=== PATIENT | male | born 1990 | race African-American/Black ===

== ENCOUNTER 2018-09-12 19:47 | Emergency (ER) | payer OTHER ==
[2018-09-12 20:29] LABS: #Eosinphils 0.2 thou/uL (0.0-0.7); #Lymphocytes 2.3 thou/uL (1.20-3.40); #Monocytes 0.4 thou/uL (0.11-0.59); #Neutrophils 3.8 thou/uL (1.40-6.50); %Basophils 0.6 % (0.0-1.0); %Eosinophils 2.7 % (0.0-10.0); %Lymphocytes 34.5 % (21.0-51.0); %Monocytes 5.3 % (0.0-10.0); %Neutrophils 56.9 % (42.0-75.0); Hemoglobin 15.3 g/dL (14.0-18.0); Mean Corpuscular HGB CONC 33.6 g/dL (32.0-36.0); Mean Corpuscular Hemoglobin 27.4 pg (27.0-31.0); Mean Corpuscular Volume 81.6 fL (78.0-98.0); Mean Platelet Volume 8.9 fL (7.4-10.4); Platelet Count 224 thou/uL (130-400); RBC Distribution Width 11.8 % (11.5-14.5); Red Blood Cell (RBC) Count 5.57 mill/uL (4.70-6.10); White Blood Cell (WBC) Count 6.6 thou/uL (4.8-10.8)
--- NOTE | 2018-09-12 20:30 | RAD ---
RADIOGRAPH CHEST 2 VIEWS: 09/12/18 HISTORY: 27-year-old male with chest pain. FINDINGS: There is no air space density, pulmonary edema, pleural effusion, or pneumothorax. IMPRESSION: No acute pulmonary findings. jn [] POS: [facility]
[2018-09-12 20:53] LABS: ALT (SGPT) 34 U/L (8-55); AST (SGOT) 21 U/L (5-34); Albumin 4.7 g/dL (3.5-5.0); Alkaline Phosphatase 87 U/L (40-150); Anion Gap 14 mmol/L (10-20); BUN (Urea Nitrogen) 11 mg/dL (8.9-20.6); Bilirubin, Total 0.2 mg/dL (0.2-1.2); CK (CPK) 283 U/L (30-200); Calc. Creatinine Clearance 0 mL/min (70-130); Calcium 9.9 mg/dL (7.8-10.44); Carbon Dioxide 26 mmol/L (22-29); Chloride 103 mmol/L (98-107); Estimated GFR-MDRD 72; Globulin 3.5 g/dL (2.4-3.5); Glucose 99 mg/dL (70-105); Protein, Total 8.2 g/dL (6.0-8.3); Sodium 139 mmol/L (136-145)
[2018-09-12] MEDS ORDERED: cloNIDine 0.1 MG TAB ONE (22:10)
[2018-09-12 22:55] LABS: Bilirubin Negative (Negative); Blood, Urine Negative (Negative); Clarity CLEAR (Clear); Glucose, Urine (Dipstick) Negative (Negative); Leukocyte Negative (Negative); Nitrite Negative (Negative); Protein, Urine (Dipstick) Negative (Neg-Trace); Specific Gravity, Urine 1.007 (1.002-1.036); Urobilinogen 0.2 mg/dL (0.2-1.0); pH, Urine 5.5 (5.0-9.0)
[2018-09-12 23:48] LABS: Amphetamine Not Detected (NotDetected); Barbiturates Screen Not Detected (NotDetected); Benzodiazepine Screen Not Detected (NotDetected); Cocaine Metabolite Screen Not Detected (NotDetected); Medtox Control Line Valid? VALID (VALID); Medtox Reader # READER 1; Methadone Not Detected (NotDetected); Methamphetamine Not Detected (NotDetected); Opiate Screen Not Detected (NotDetected); Oxycodone Screen Not Detected (NotDetected); Phencyclidine (PCP) Not Detected (NotDetected); THC/Cannabinoid Screen Not Detected (NotDetected); Tricyclic Screen Not Detected (NotDetected)
--- NOTE | 2018-09-16 10:48 | EKG ---
Test Reason : Blood Pressure : / mmHG Vent. Rate : 079 BPM Atrial Rate : 079 BPM P-R Int : 170 ms QRS Dur : 090 ms QT Int : 384 ms P-R-T Axes : 052 -27 008 degrees QTc Int : 440 ms Normal sinus rhythm Possible Left atrial enlargement Left ventricular hypertrophy Abnormal ECG Confirmed by ARNOLD GILLIAM DO ([id number]), scientific editor DEB DENNIS ([id number] on 09/16/2018 10:47:56 AM Referred By: Confirmed By:ARNOLD GILLIAM DO
== END 2018-09-12 23:55 | disposition home or self-care (01) ==
LOC: ERS 19:47
DX: I10 Essential (primary) hypertension (principal); R07.9 Chest pain, unspecified; F17.200 Nicotine dependence, unspecified, uncomplicated
CPT/HCPCS: 36415; 71046; 80053; 80306; 81003; 82550; 84484; 85025; 93005

== ENCOUNTER 2018-09-27 13:03 | Outpatient (CLI) | payer OTHER ==
--- NOTE | 2018-09-27 14:03 | ULT ---
RENAL ULTRASOUND: INDICATIONS: History of hypertension. COMPARISON: None. FINDINGS: No focal renal lesion or hydronephrosis is evident. The total bladder volume was 52.3 mL. The left kidney measures 10.8 x 6.2 x 5.6 cm. Left renal cortical thickness was 2 cm. The right kidney measures 11.4 x 5.1 x 6 cm. The right renal cortical thickness is 1.6 cm. No focal renal lesion or hydronephrosis is evident. IMPRESSION: No focal renal lesion or hydronephrosis. POS: [facility]
== END 2018-09-27 13:04 | disposition home or self-care (01) ==
LOC: BICULT 13:03
PROVIDERS: ATTEND Family Medicine
DX: I10 Essential (primary) hypertension (principal)
CPT/HCPCS: 76770

== ENCOUNTER 2023-07-13 18:43 | Inpatient (IN) | payer OTHER, SELFPAY ==
[2023-07-13] MEDS ORDERED: Nitroglycerin 2% Ointment 1 INCH/1 GM Packet ONE (20:29)
[2023-07-13 20:37] LABS: #Eosinphils 0.1 thou/uL (0.0-0.7); #Monocytes 0.5 thou/uL (0.11-0.59); %Basophils 0.4 % (0.0-1.0); %Eosinophils 1.8 % (0.0-10.0); %Lymphocytes 16.8 % (21.0-51.0); %Monocytes 6.9 % (0.0-10.0); %Neutrophils 73.8 % (42.0-75.0); Hematocrit 42.4 % (42.0-52.0); Hemoglobin 13.9 g/dL (14.0-18.0); Mean Corpuscular HGB CONC 32.8 g/dL (32.0-36.0); Mean Corpuscular Hemoglobin 25.5 pg (27.0-31.0); Mean Corpuscular Volume 77.8 fl (78.0-98.0); Platelet Count 323 10x3/uL (130-400); RBC Distribution Width 14.6 % (11.5-14.5); Red Blood Cell (RBC) Count 5.45 mill/uL (4.70-6.10); White Blood Cell (WBC) Count 6.7 10x3/uL (4.8-10.8)
[2023-07-13] MEDS ORDERED: niCARdipine 25 MG/10 ML SDV ONE (20:42)
[2023-07-13 20:54] LABS: ALT (SGPT) 65 U/L (8-55); AST (SGOT) 41 U/L (5-34); Acetaminophen Less than 10 mcg/mL (10.0-30.0); Albumin 3.9 g/dL (3.5-5.0); Alcohol Less than 10.0 mg/dL (Less than 10); Alkaline Phosphatase 70 U/L (40-110); Anion Gap 16 mmol/L (10-20); BUN (Urea Nitrogen) 26 mg/dL (8.9-20.6); Bilirubin, Total 0.9 mg/dL (0.2-1.2); Calc. Creatinine Clearance 0 mL/min (70-130); Calcium 8.5 mg/dL (7.8-10.44); Carbon Dioxide 21 mmol/L (22-29); Chloride 104 mmol/L (98-107); Estimated GFR 48; Globulin 2.4 g/dL (2.4-3.5); Glucose 86 mg/dL (70-105); Lipase 27 U/L (8-78); Potassium 3.2 mmol/L (3.5-5.1); Protein, Total 6.3 g/dL (6.0-8.3); Salicylate Less than 8.0 mg/dL (15.0-30.0); Sodium 138 mmol/L (136-145)
[2023-07-13 21:05] LABS: Troponin I 0.063 ng/mL (< 0.028)
[2023-07-13 21:54] LABS: Bacteria/HPF None Seen HPF (None Seen); Bilirubin Negative (Negative); Blood, Urine Negative (Negative); CAUTI Indications for Culture Fever or rigors; Clarity Clear (Clear); Glucose, Urine (Dipstick) Normal (Negative); Ketone, Urine Negative (Negative); Leukocyte Negative Leu/uL (Negative); Nitrite Negative (Negative); Protein, Urine (Dipstick) 30 mg/dL (Neg-Trace); RBC/HPF 0-3 HPF (0-3); Specific Gravity, Urine 1.011 (1.002-1.036); Squamous Epithelial None Seen HPF (0-3); Urobilinogen Normal mg/dL (Less than 2); WBC/HPF 0-3 HPF (0-3)
[2023-07-13 21:57] LABS: Urine Culture Reflex No No
[2023-07-13 22:03] LABS: Amphetamine Not Detected (NotDetected); Barbiturates Screen Not Detected (NotDetected); Benzodiazepine Screen Not Detected (NotDetected); Cocaine Metabolite Screen Not Detected (NotDetected); Methadone Not Detected (NotDetected); Methamphetamine Not Detected (NotDetected); Opiate Screen Not Detected (NotDetected); Oxycodone Screen Not Detected (NotDetected); Phencyclidine (PCP) Not Detected (NotDetected); THC/Cannabinoid Screen Not Detected (NotDetected); Tricyclic Screen Not Detected (NotDetected)
[2023-07-13] MEDS ORDERED: Furosemide 40 MG/4 ML VIAL ONE (22:22)
[2023-07-13] MEDS ORDERED: Ketorolac Tromethamine 30 MG/ML VIAL ONE (23:43)
[2023-07-14] MEDS ORDERED: Ondansetron ODT 4 MG TAB SL PRN (01:00)
[2023-07-14] MEDS ORDERED: Ondansetron PF 4 MG/2 ML Vial IVP PRN (01:00)
[2023-07-14] MEDS: niCARdipine 25 MG in Sodium Chloride 0.9% 250 ML 250 ML IVPB SCH ×2 (01:03→03:55)
[2023-07-14] MEDS ORDERED: Acetaminophen 650 MG Suppository PR PRN (01:10)
[2023-07-14] MEDS ORDERED: Acetaminophen 650 MG/20.3 ML UDCUP PO PRN (01:10)
[2023-07-14] MEDS ORDERED: Labetalol HCl 100 MG/20 ML VIAL SLOW IVP PRN (01:24)
[2023-07-14] MEDS ORDERED: hydrALAZINE 20 MG/ML VIAL SLOW IVP PRN (01:24)
[2023-07-14] MEDS ORDERED: Potassium Chloride 20 MEQ TAB PO SCH ×3 (01:30→14:00)
[2023-07-14 02:17] LABS: #Eosinphils 0.1 thou/uL (0.0-0.7); #Monocytes 0.4 thou/uL (0.11-0.59); #Neutrophils 5.3 thou/uL (1.40-6.50); %Basophils 0.4 % (0.0-1.0); %Eosinophils 0.7 % (0.0-10.0); %Lymphocytes 12.8 % (21.0-51.0); %Monocytes 6.1 % (0.0-10.0); %Neutrophils 79.6 % (42.0-75.0); Hematocrit 42.7 % (42.0-52.0); Hemoglobin 13.8 g/dL (14.0-18.0); Mean Corpuscular HGB CONC 32.3 g/dL (32.0-36.0); Mean Corpuscular Hemoglobin 25.4 pg (27.0-31.0); Mean Corpuscular Volume 78.5 fl (78.0-98.0); Mean Platelet Volume 10.6 fL (7.4-10.4); Platelet Count 289 10x3/uL (130-400); RBC Distribution Width 14.5 % (11.5-14.5); Red Blood Cell (RBC) Count 5.44 mill/uL (4.70-6.10); White Blood Cell (WBC) Count 6.7 10x3/uL (4.8-10.8)
[2023-07-14 02:42] LABS: Troponin I 0.046 ng/mL (< 0.028)
[2023-07-14 03:02] LABS: Anion Gap 14 mmol/L (10-20); BUN (Urea Nitrogen) 24 mg/dL (8.9-20.6); Calc. Creatinine Clearance 100 mL/min (70-130); Calcium 8.7 mg/dL (7.8-10.44); Carbon Dioxide 28 mmol/L (22-29); Chloride 104 mmol/L (98-107); Estimated GFR 50; Glucose 112 mg/dL (70-105); Potassium 3.1 mmol/L (3.5-5.1); Sodium 143 mmol/L (136-145)
[2023-07-14] MEDS ORDERED: niCARdipine 50 MG, Admixture Fee 1 EACH in Sodium Chloride 0.9% 250 ML 230 ML IVPB SCH (05:45)
[2023-07-14] MEDS ORDERED: Furosemide 40 MG/4 ML VIAL SLOW IVP SCH (06:00)
[2023-07-14] MEDS ORDERED: Aspirin 325 MG TAB PO SCH (08:00)
[2023-07-14] MEDS ORDERED: Electrolyte Replacement Protocol 1 EACH FS SCH (08:15)
[2023-07-14 08:20] LABS: Creatinine, Urine 86.06 mg/dL (63-166)
[2023-07-14 08:23] VITALS: BMI 34.9
[2023-07-14] MEDS ORDERED: Magnesium 2 GM/50 ML(in water) 2 GM in Premix 1 BAG IVPB SCH (08:45)
[2023-07-14] MEDS ORDERED: Electrolyte Replacement Protocol FS PRN (08:45)
[2023-07-14] MEDS ORDERED: NIFEdipine XL 60 MG ER.TAB PO SCH (09:00)
[2023-07-14] MEDS ORDERED: FLU VACC QS2023-24(6MOS UP)/PF 60 MCG/0.5 ML SYRINGE IM ONE (09:00)
[2023-07-14] MEDS: Carvedilol 25 MG TAB PO SCH ×2 (09:05→20:13)
[2023-07-14] MEDS: Famotidine/PF 20 mg/2ml Vial SLOW IVP SCH ×2 (09:05→20:14)
[2023-07-14 09:39] LABS: Anion Gap 16 mmol/L (10-20); BUN (Urea Nitrogen) 21 mg/dL (8.9-20.6); Calc. Creatinine Clearance 108 mL/min (70-130); Calcium 8.3 mg/dL (7.8-10.44); Carbon Dioxide 25 mmol/L (22-29); Chloride 105 mmol/L (98-107); Estimated GFR 55; Glucose 73 mg/dL (70-105); Potassium 2.9 mmol/L (3.5-5.1); Sodium 143 mmol/L (136-145)
[2023-07-14] MEDS ORDERED: Sodium Chloride 0.9% 1,000 ML IV SCH (12:30)
[2023-07-14 18:40] LABS: Anion Gap 15 mmol/L (10-20); BUN (Urea Nitrogen) 23 mg/dL (8.9-20.6); Calc. Creatinine Clearance 102 mL/min (70-130); Carbon Dioxide 22 mmol/L (22-29); Chloride 106 mmol/L (98-107); Estimated GFR 52; Glucose 108 mg/dL (70-105); Potassium 3.8 mmol/L (3.5-5.1); Sodium 139 mmol/L (136-145)
[2023-07-15 01:09] LABS: Troponin I 0.063 ng/mL (< 0.028)
[2023-07-15 05:08] LABS: ALT (SGPT) 59 U/L (8-55); AST (SGOT) 21 U/L (5-34); Albumin 3.2 g/dL (3.5-5.0); Alkaline Phosphatase 67 U/L (40-110); Anion Gap 13 mmol/L (10-20); BUN (Urea Nitrogen) 23 mg/dL (8.9-20.6); Bilirubin, Direct 0.2 mg/dL (0.1-0.3); Bilirubin, Total 0.5 mg/dL (0.2-1.2); Calc. Creatinine Clearance 100 mL/min (70-130); Calcium 8.2 mg/dL (7.8-10.44); Carbon Dioxide 24 mmol/L (22-29); Chloride 105 mmol/L (98-107); Estimated GFR 50; Glucose 115 mg/dL (70-105); Magnesium 2.3 mg/dL (1.6-2.6); Potassium 3.2 mmol/L (3.5-5.1); Protein, Total 5.5 g/dL (6.0-8.3); Sodium 139 mmol/L (136-145)
[2023-07-15] MEDS ORDERED: Potassium Chloride 20 MEQ TAB PO SCH (08:00)
[2023-07-15] MEDS ORDERED: NIFEdipine XL 30 MG ER.TAB PO SCH ×2 (09:00→21:00)
[2023-07-15] MEDS ORDERED: Torsemide 20 MG TAB PO SCH (09:00)
[2023-07-15] MEDS ORDERED: Spironolactone 100 MG TAB PO SCH (09:00)
[2023-07-15] MEDS: Carvedilol 25 MG TAB PO SCH (10:03)
[2023-07-15] MEDS: Famotidine/PF 20 mg/2ml Vial SLOW IVP SCH (10:04)
[2023-07-15 16:26] VITALS: BP 141/91; TEMP 98.4
== END 2023-07-15 18:30 | disposition home or self-care (01) | DRG 291 ==
LOC: ERS 18:43 → CCU 23:09 → 2NO 07-14 21:29
PROVIDERS: ADMIT Student in an Organized Health Care Education/Training Program; ATTEND Family Medicine
DX: I13.0 Hypertensive heart and chronic kidney disease with heart failure and stage 1 through stage 4 chronic kidney disease, or unspecified chronic kidney disease (principal); I50.43 Acute on chronic combined systolic (congestive) and diastolic (congestive) heart failure; I16.1 Hypertensive emergency; N17.9 Acute kidney failure, unspecified; I42.9 Cardiomyopathy, unspecified; E87.6 Hypokalemia; Z79.899 Other long term (current) drug therapy; Z98.890 Other specified postprocedural states; F17.290 Nicotine dependence, other tobacco product, uncomplicated; R74.01 Elevation of levels of liver transaminase levels; G47.33 Obstructive sleep apnea (adult) (pediatric); R80.9 Proteinuria, unspecified; E66.9 Obesity, unspecified; E26.09 Other primary hyperaldosteronism; F41.9 Anxiety disorder, unspecified; E78.00 Pure hypercholesterolemia, unspecified; Z68.34 Body mass index [BMI] 34.0-34.9, adult
CPT/HCPCS: 36415; 71045; 76700; 76856; 80048; 80053; 80076; 80306; 80307; 81001; 82088; 82570; 83690; 83735; 83880; 84156; 84244; 84300; 84484; 84540; 85025; 93005; 93306; 94760; 96365; 96366; 96374; 96375; 97139; J1885; J1940; J3475; J7050; S0028